=== PATIENT | female | born 1980 | race Caucasian/White ===

== ENCOUNTER 2024-02-03 14:41 | Emergency (ER) | payer SELFPAY ==
[2024-02-03 15:00] VITALS: BP 127/85; PULSE 97; RESP 14; TEMP 36.7; O2SAT 100
[2024-02-03 15:14] LABS: Basophils % 0.7 %; Eosinophils # 0.2 10^3/uL (0.0-0.8); Eosinophils % 3.4 %; Hematocrit 39.8 % (36-47); Lymphocytes # 1.4 10^3/uL (0.8-4.8); Lymphocytes % 22.1 %; Mean Corpuscular HGB Conc 31.4 g/dL (30-55); Mean Corpuscular Volume 95.7 fl (85-98); Mean Platelet Volume 9.1 fL (7.4-10.4); Monocytes # 0.4 10^3/uL (0.2-0.9); Monocytes % 6.7 %; Neutrophils % 66.9 %; Nucleated Red Blood Cells % 0 %; Platelet Count 327 10^3/cmm (157-399); Red Blood Count 4.16 10^6/uL (3.85-5.65); Red Cell Distribution Width 12.5 % (12.1-15.1); White Blood Count 6.12 10^3/uL (3.29-11.43)
[2024-02-03 15:29] LABS: HCG, Serum Qual Negative (Negative)
--- NOTE | 2024-02-03 15:29 | ED_ITS ---
HPI - Female Genitourinary 2 General: Chief complaint: Vaginal Bleeding Stated complaint: Vaginal bleeding Time Seen by Provider: 02/03/24 15:29 History of Present Illness: Patient comes in today for some increase in vaginal bleeding over the last 3 to 4 days. Patient reports some light spotting over the last month. Patient denies any pain or severe illness. Patient also has an infected insect bite to the left buttock. Related Data Previous Rx's Medication Instructions Recorded sulfamethoxazole 800 1 tab PO BID 7 days #14 tabs 02/03/24 mg-trimethoprim 160 mg tablet (Bactrim DS) Allergies Allergy/AdvReac Type Severity Reaction Status Date / Time Penicillins Allergy ALGY-Hives Verified 02/03/24 15:05 Review of Systems 2 General: Reports: 10 or more systems reviewed and unremarkable except in HPI and below Physical Exam 2 Const: COMMON NORMALS: alert HENMT: COMMON NORMALS: normocephalic HEAD & SCALP: normocephalic Neck/C-Spine: COMMON NORMALS: full ROM Resp: COMMON NORMALS: normal respiratory effort Cardio: COMMON NORMALS: regular rate RATE: regular rate GI: COMMON NORMALS: non-tender Back/Pelvis: COMMON NORMALS: thoracic and lumbar spine normal to inspection Extremity: COMMON NORMALS: full ROM Neuro: SENSORIUM/ORIENTATION: Yes alert Skin: NARRATIVE SKIN EXAM: Healing wound left buttock Multiple crusted lesions to the inner thigh. Course 2 Vital Signs: Vital signs: Vital Signs Temperature 98.1 F 02/03/24 15:00 Pulse Rate 97 02/03/24 15:00 Respiratory Rate 14 02/03/24 15:00 Blood Pressure 127/85 02/03/24 15:00 Pulse Oximetry 100 02/03/24 15:00 Oxygen Delivery Me thod Room Air 02/03/24 15:00 MDM - Female Medical Decision Making 43-year-old female comes in today for complaints of abnormal uterine bleeding. Patient reports some spotting over the last month and then heavier bleeding over the last week with some clots about the size of the end of her thumb. Patient appears nontoxic. Respirations are even. Vital signs are normal. Differential diagnosis includes but not limited to perimenopausal bleeding, abnormal uterine bleeding, , UTI, infected insect bite, scabies, impetigo. Patient be covered for her wound infection with Bactrim. Patient will be set for follow-up with primary care for further evaluation of abnormal uterine bleeding. CBC and CMP were normal. Patient was not . Lab Data 02/03/24 15:00 02/03/24 15:00 Laboratory Results WBC 6.12 10^3/uL (3.29-11.43) 02/03/24 15:00 RBC 4.16 10^6/uL (3.85-5.65) 02/03/24 15:00 Hgb 12.50 g/dL (11.27-16.99) 02/03/24 15:00 Hct 39.8 % (36-47) 02/03/24 15:00 MCV 95.7 fl (85-98) 02/03/24 15:00 MCH 30.0 pg (27-33) 02/03/24 15:00 MCHC 31.4 g/dL (30-55) 02/03/24 15:00 RDW 12.5 % (12.1-15.1) 02/03/24 15:00 Plt Count 327 10^3/cmm (157-399) 02/03/24 15:00 MPV 9.1 fL (7.4-10.4) 02/03/24 15:00 Neut % (Auto) 66.9 % 02/03/24 15:00 Lymph % (Auto) 22.1 % 02/03/24 15:00 [place] % (Auto) 6.7 % 02/03/24 15:00 Eos % (Auto) 3.4 % 02/03/24 15:00 Baso % (Auto) 0.7 % 02/03/24 15:00 Neut # (Auto) 4.10 10^3/uL (1.8-7.7) 02/03/24 15:00 Lymph # (Auto) 1.4 10^3/uL (0.8-4.8) 02/03/24 15:00 [place] # (Auto) 0.4 10^3/uL (0.2-0.9) 02/03/24 15:00 Eos # (Auto) 0.2 10^3/uL (0.0-0.8) 02/03/24 15:00 Baso # (Auto) 0.0 10^3/uL (0.0-0.1) 02/03/24 15:00 Nucleated RBC % (auto) 0 % 02/03/24 15:00 Nucleated RBCs # 0.0 /100WBC 02/03/24 15:00 Sodium 140 mmol/L (136-145) 02/03/24 15:00 Potassium 4.0 mmol/L (3.5-5.1) 02/03/24 15:00 Chloride 106 mmol/L (98-107) 02/03/24 15:00 Carbon Dioxide 23 mmol/L (22-29) 02/03/24 15:00 Anion Gap 15.0 (5-19) 02/03/24 15:00 BUN 16 mg/dL (6-20) 02/03/24 15:00 Creatinine 0.7 mg/dL (0.5-0.9) 02/03/24 15:00 GFR Calculation 90.9 mL/min (90-130) 02/03/24 15:00 Glucose 78 mg/dL (65-115) 02/03/24 15:00 Calculated Osmolality 290 mOsm/kg (285-295) 02/03/24 15:00 Total Bilirubin 0.2 mg/dL (0.15-1.2) 02/03/24 15:00 Alkaline Phosphatase 98 U/L (35-105) 02/03/24 15:00 Total Protein 6.8 g/dL (6.6-8.7) 02/03/24 15:00 Albumin 3.8 g/dL (3.5-5.2) 02/03/24 15:00 Globulin 3.0 g/dL (1.3-4.6) 02/03/24 15:00 HCG, Qual Negative (Negative) 02/03/24 15:00 No radiology studies performed this visit Discharge Plan Discharge Patient Disposition: Home Clinical Impression: Dysfunctional uterine bleeding Infected insect bite of buttock Qualifiers: Encounter type: initial encounter Qualified Code(s): S30.860A - Insect bite (nonvenomous) of lower back and pelvis, initial encounter Condition: Stable Prescriptions: New Bactrim DS 800-160 mg tablet 1 tab PO BID 7 Days Qty: 14 0RF Discharge Orders: Discharge ED (Routine); Ordered 02/03/24 Ordered By: Pardeep Trujillo Discharge Diet: Usual diet Discharge Activity: Increase activity as tolerated Patient Instructions: Abnormal (Dysfunctional) Uterine Bleeding (ED) Activity Restrictions/Additional Instructions: Use a antibacterial soap when washing with the insect bites to avoid further infection. Take oral antibiotics for resolution of infected wound. Case management will contact you regarding follow-up with primary care/[employer] AND [employer]LECTIONS REPRESENTATIVE for further treatment and evaluation of abnormal uterine bleeding. Thank you for choosing [facility] for your healthcare needs today. Please realize this is an emergency room and that we are providing you with a medical screening exam and this may not be complete and all inclusive of all the testing and or work up that you may need to determine your ailment or severity of your illness. You have been screened and evaluated and felt safe for discharge. Health conditions do change or evolve sometimes and as such it is important that you follow up with your Primary Doctor to be re checked, 3-5 days is a general good time frame for follow up. You are always welcome to return to the ED for re assessment if your symptoms are worsening or you have new concerns Coding Level of Care Code ED Rug Repairer for Dorita Spencer
[2024-02-03 15:34] LABS: Alanine Aminotransferase 54 U/L (0-33); Albumin Level 3.8 g/dL (3.5-5.2); Alkaline Phosphatase 98 U/L (35-105); Aspartate Amino Transferase 53 U/L (0-32); Blood Urea Nitrogen 16 mg/dL (6-20); Calcium 8.4 mg/dL (8.5-10.5); Carbon Dioxide 23 mmol/L (22-29); Chloride 106 mmol/L (98-107); Glomerular Filtration Rate 90.9 mL/min (90-130); Glucose 78 mg/dL (65-115); Osmolality Calculated 290 mOsm/kg (285-295); Sodium 140 mmol/L (136-145); Total Bilirubin 0.2 mg/dL (0.15-1.2); Total Protein 6.8 g/dL (6.6-8.7)
[2024-02-03 15:49] VITALS: BP 136/75
== END 2024-02-03 15:51 | disposition home or self-care (01) ==
PROVIDERS: Emergency Medicine; Emergency Provider Nurse Practitioner Family
DX: N93.8 Other specified abnormal uterine and vaginal bleeding (principal); S30.860A Insect bite (nonvenomous) of lower back and pelvis, initial encounter; W57.XXXA Bitten or stung by nonvenomous insect and other nonvenomous arthropods, initial encounter
CPT/HCPCS: 36415; 80053; 84703; 85025; 99283